=== PATIENT | female | born 2005 | race Caucasian/White ===

== ENCOUNTER 2025-08-30 14:05 | Outpatient (AMB) | payer BC, SELFPAY ==
--- NOTE | 2025-08-30 14:10 | MHC.OFFVIS ---
Vital Signs 08/30/25 14:18 Height 5 ft 6 in Weight 163 lb 9.328 oz BMI 26.4 BP 122/70 Blood Pressure Location Rt brachial Position Sitting Pulse 85 Intake Visit Reasons: Hemorrhage or Anus & Rectum Intake Note: New pain in office today for rectal bleeding. CC: Patient reports that she had rectal bleeding back in May and again this week starting last Wednesday. Denies other GI symptoms today. Environmental Technician Required: No Accompanied by: Self / Same As Patient Allergies No Known Drug Allergies Allergy (Unknown, Verified 08/30/25 14:20) none HPI HPI Hemorrhage or Anus & Rectum: Details: 19-year-old female referred for rectal bleeding. She is an international student at [employer] and we have very little background medical information on her at all. PMX PCOS SURGICAL HISTORY ALLERGIES:NKDA Phigital LABS: none TODAY'S VISIT [facility] Surgical History (Updated 08/30/25 @ 14:22 by PATRICIO Oliver) No pertinent past surgical history Family History (Updated 08/30/25 @ 14:22 by PATRICIO Oliver) Other No pertinent family history Social History Alcohol intake: never Patient Tobacco Use Status: Never used Tobacco Review of Systems Const Denies fatigue, Denies fever(s), Denies night sweats, Denies poor appetite and Denies weight loss ENT Reports Normal hearing present, Denies dental pain, Denies dysphagia, Denies hearing loss, Denies mouth pain, Denies odynophagia, Denies throat swelling, Denies tongue swelling and Reports other (Dentition adequate) Card Reports no additional complaints Resp Reports no additional complaints GI Details: Denies abdominal pain, Denies melena, Denies bloating, Reports hematochezia, Denies constipation, Denies GI cramping, Denies dysphagia, Denies excessive flatus, Denies early satiety, Denies heartburn, Denies diarrhea, Denies nausea, Denies odynophagia, Denies vomiting and Denies hematemesis Skin/Breast Denies pruritus, Denies lesions, Denies rash and Denies jaundice Neuro Reports Normal hearing present and Denies Abnormal speech present Endo Denies fatigue Aller/Immun Denies throat swelling and Denies tongue swelling Physical Exam Const General: cooperative, no acute distress, well developed and well groomed Nutritional Appearance: average body habitus and well nourished Orientation/consciousness: oriented to person, oriented to place and oriented to time Limitations: No language barrier HEENT Head: Yes normocephalic and Yes atraumatic Eyes General: appearance normal, both eyes and all related structures Pupils: Equal, round and reactive pupils present Neck Neck: Yes normal visual inspection and Yes no lymphadenopathy Thyroid: Thyroid normal Resp Effort & Inspection: normal respiratory effort and able to speak in complete sentences Auscultation: clear to auscultation bilaterally Cardio Rate: regular rate Rhythm: regular rhythm Heart sounds: Normal, physiologic split S2 sound present Peripheral pulses: radial pulses present and posterior tibial pulses present GI Inspection: No distended and No Abdominal panniculus present Palpation (GI): Soft to palpation, nontender, no guarding, not rigid, No hepatosplenomegaly present and Hepatosplenomegaly present Percussion: Yes normal to percussion Auscultation: normal bowel sounds Rectal Exam - Female: deferred Skin General skin exam: no rashes or lesions noted, turgor normal, skin not dry, no jaundice, No spider nevi and no striae Rashes: no rashes Nails: normal Neuro General: oriented to person, oriented to place and oriented to time Cranial nerves: Yes Equal, round and reactive pupils present and Yes Normal hearing present Speech: No Abnormal speech present Extrem General: Yes normal to inspection, No clubbing, No cyanosis and No edema Psych Appearance: grossly normal and well kempt Mental Status: mental status grossly normal Speech and movement: Normal speech and movement present Affect: normal affect Attitude: cooperative Thought process: Normal thought process present and not confabulating Thought content: Normal thought content present Insight: Good insight present (Psych) Judgement: Good judgement present (Psych) Assessment & Plan Assessment & Plan (1) Rectal bleeding: Code(s): K62.5 - Hemorrhage of anus and rectum Category: Medical (2) Pre-op examination: Code(s): Z01.818 - Encounter for other preprocedural examination Category: Medical Plan Subjective Patient presents for evaluation of rectal bleeding. First episode occurred on May 21 with sudden bright red blood noted on toilet paper, stool, and in the bowl, described as heavy that day, then resolved. Recurrent episodes began this week (Wednesday, Wednesday, and today) with similar but lesser amounts (typically one wipe with small blood, minimal in the bowl). Denies rectal pain, fever, bloating, or other GI symptoms. No history of GI issues. Reports no constipation and no straining; stools became firmer/bulkier after increasing dietary fiber (oats, gautam, fruits, vegetables) following the first episode. Recently increased physical activity with [employer] and [employer] team participation. On control and does not menstruate. Telehealth consultation with a manager party in [place] suggested hemorrhoids and advised fiber and less sitting. No known family history of colon cancer. Past history notable for PCOS. No prior surgeries or hospitalizations. No medication allergies. Recent labs: A1C in October and STI testing. Pharmacy preference: [facility] in [place] (delivers to [facility]). Objective Assessment & Plan Rectal bleeding (hematochezia), likely hemorrhoidal: Clinical pattern of intermittent bright red blood on wiping and bowl without pain is consistent with hemorrhoidal bleeding. Given rising incidence of early-onset colorectal pathology in the [place] will proceed with endoscopic evaluation despite low likelihood at age 19 and absence of family history. - Start topical hemorrhoid cream: apply twice daily (morning and night) for 2 weeks to reduce inflammation and bleeding. Prescription sent to [facility] ([place]) per patient preference. - Continue high-fiber diet; maintain hydration. - Personal Care Aid on weightlifting technique to avoid Valsalva/holding breath; consider working with a ultimate hoops trainer to optimize form. - Order flexible sigmoidoscopy for further evaluation. Discussed timing constraints; scheduling likely into November, with patient away 09/26?10/20. Will attempt to expedite as feasible per scheduling/insurance. - Bowel prep and sedation counseling provided: clear liquid diet 24 hours prior (avoid red liquids); standard bowel prep evening prior; IV moderate sedation with nasal cannula oxygen during procedure; expected quick recovery from sedation. Orders: Orders Comprehensive Met. Panel Today Z01.818 - Encounter for other preprocedural examination Complete Blood Count Auto Diff Today Z01.818 - Encounter for other preprocedural examination Referrals GI Procedure Notification K62.5 - Hemorrhage of anus and rectum Medications: New hydrocortisone 2.5% (Proctosol HC) BE SURE TO INCLUDE RECTAL APPICATOR!! 1 appl WI BID 30 grams 6RF hemorrhoids K64.9 - Unspecified hemorrhoids peg 3350-electrolytes 236-22.74-6.74 -5.86 gram (Golytely) until fecal effluent is clear; do not exceed a total volume of 2,000 mL 240 mL PO Q10M 4,000 mL 0RF 1 day Z12.11 - Encounter for screening for malignant neoplasm of colon Coding Level of Care Code New Pt Level 3 (36065) Diagnoses Rectal bleeding K62.5 Pre-op examination Z01.818
[2025-08-30 14:18] VITALS: BP 122/70; PULSE 85; BMI 26.4
== END 2025-08-30 15:11 | disposition home or self-care (01) ==
LOC: HO.HGI 14:06
PROVIDERS: PCP Nurse Practitioner Family; Visit Provider Nurse Practitioner
DX: K62.5 Hemorrhage of anus and rectum (principal)
CPT/HCPCS: 99203